=== PATIENT | female | born 1965 | race Asian ===

== ENCOUNTER 2019-06-20 13:10 | Outpatient (CLI) | payer OTHER | END 2019-06-20 20:19 | disposition home or self-care (01) | LOC: US 13:10 | DX: M79.605 Pain in left leg (principal); M79.604 Pain in right leg ==

== ENCOUNTER 2020-07-17 13:13 | Outpatient (CLI) | payer OTHER | END 2020-07-17 19:05 | disposition home or self-care (01) | LOC: US 13:13 | PROVIDERS: ATTEND Internal Medicine | DX: I70.213 Atherosclerosis of native arteries of extremities with intermittent claudication, bilateral legs (principal); M79.605 Pain in left leg; M79.604 Pain in right leg ==